=== PATIENT | female | born 1980 | race Caucasian/White ===

== ENCOUNTER → 2020-09-10 02:26 | Outpatient (CLI) | payer OTHER, SELFPAY ==
[2020-09-10 18:14] LABS: SARS-CoV-2 RNA PCR Negative
== END ==
PROVIDERS: Visit Provider Surgery Plastic and Reconstructive Surgery
DX: Z01.812 Encounter for preprocedural laboratory examination (principal); Z20.822 Contact with and (suspected) exposure to COVID-19
CPT/HCPCS: C9803; U0003; U0005

== ENCOUNTER 2020-09-12 00:38 | Day surgery (SDC) | payer OTHER, SELFPAY ==
[2020-08-30 12:15] VITALS: BMI 33.3
[2020-09-12] VITALS (9 sets, daily range): BP systolic 114–136; BP diastolic 63–77; PULSE 60–81; RESP 13–20; TEMP 35.9–36.9; O2SAT 94–99
[2020-09-12] MEDS: LACTATED RINGERS 1,000 ML 30 ML IV CONT (06:34)
--- NOTE | 2020-09-12 06:56 | WPDHPUPDATE1 ---
History and Physical Update Update Date/Time: 09/12/20 06:56 History and Physical has been reviewed, including an updated exam of the patient. There are NO changes in the patient's condition. Risks, benefits, and alternatives have been discussed and questions answered. Patient agrees to proceed with procedure.
--- NOTE | 2020-09-12 07:18 | P.OP_ITS ---
Procedure Note - Detailed Date of procedure: 09/12/20 Pre-op diagnosis: breast ptosis Post-op diagnosis: same Procedure performed: Bilateral mastopexy with lateral breast/chest wall suction lipectomy and Galaflex Description of procedure: Preoperatively the risks, benefits, alternatives were again discussed with her. Discussed realistic expectations of outcome. I identified asymmetries that were existing and limitations of the procedure. All questions answered. Consent obtained. He was marked in the preoperative holding area with her verification. She was taken to the operating room placed supine on the operating room table. Ane sthesia was provided by anesthesiology and prepped and draped in a standard sterile fashion. Surgical time-out was taken. Stab incisions were made and used a tumescent solution. The breast was tailor tacked into position. Placed in a sitting position. I marked out the nipple-areolar complex at 30 mm based on preoperative markings and intraoperative observations and measurements which were in full agreement. I de-epithelialized bilateral superior pedicles. Subsequently de-epithelialized the inferior pole of the breast. I created bilateral auto augmentation flaps. On the left portion of this soft tissue had to be resected in order provide symmetry between the breasts. These were tacked to the chest wall using 2-0 PDS. I then tailor tacked the breast into position again. Placed her in a sitting position and verified my markings for suction lipectomy. Using a 4 mm basket cannula based on S.A.F.E. technique I completed suction lipectomy bilateral lateral breast and chest wall as necessary in order to provide maximum symmetry and contour. This was based on observations and rolling pinch test. I then proceeded with closure using 2-0 PDS along the IMF and vertical pillars. This followed by 3-0 Monocryl in the vertical and around the areola. 3-0 strata fix along the IMF. Finally running subcuticular 4-0 Monocryl for final closure followed by tissue glue. Surgical bra was placed. Patient was woken taken to the PACU without difficulty. All instrument sponge counts were correct at the end of the case. Anesthesia: GLMA Surgeon: Luis Silverio MD Estimated blood loss (mL): 50 Drains: No Packing: No Pathology: none sent Complications: No immediate complications Condition: stable Disposition: PACU Findings: Inverted T Superior pedicle Suction lipectomy volume - 600cc Galaflex - REF# [id number]
[2020-09-12] MEDS: SCOPOLAMINE 1.5 MG PATCH TRANSDERM (07:20)
--- NOTE | 2020-09-12 07:20 | WPDANESEPPF ---
Anes - Initial Pre Proc Eval Procedure: Operation Date: 09/12/20 07:30 Proposed Procedures p Bilateral Breast Mastopexy with Galaflex, Lateral Breast Liposuction - Luis Silverio MD Date/Time: 09/12/20 07:20 Surgeon: Luis Silverio MD Pre Op Diagnosis: breast ptosis Patient Data Age: 40 Gender: F Height: 5 ft 4 in Weight: 88 kg Allergies Allergy/AdvReac Type Severity Reaction Status Date / Time No Known Allergies Allergy Verified 08/30/20 12:13 Home Medications Medication Instructions Recorded Confirmed Type docusate sodium 100 mg capsule 100 mg PO DAILY #14 cap 08/28/20 08/30/20 Rx ondansetron HCl 4 mg tablet 4 mg PO Q8H #28 tablet 08/28/20 08/30/20 Rx drospirenone-ethinyl estradiol 1 tablet PO DAILY 08/30/20 08/30/20 History [Angelica] multivitamin 1 tablet PO DAILY 08/30/20 08/30/20 History carisoprodol 350 mg tablet 350 mg PO TID PRN #21 tablet 09/02/20 09/02/20 Rx oxycodone-acetaminophen 5 mg-325 1 tablet PO Q6H PRN #15 tablet 09/02/20 09/02/20 Rx mg tablet Laboratory Tests 09/12/20 06:29 Cotinine Pending Patient hx anesthesia problems: post op nausea/vomiting Family hx anesthesia problems: none PMFSH Past Medical History Medical History (Updated 09/12/20 @ 07:20 by Placido Lay MD) Healthy adult Surgical History Surgical History History of hip surgery Social History Social History Smoking status: Never smoker Alcohol intake: current Drinks per week: 2 Substance use: never Substance use type: does not use Living arrangements: with family Spiritual care concerns: No Anes - Eval Final PreProcedure Day of Procedure 09/12/20 07:20 Patient weight: normal Heart: regular rate and rhythm Lungs: clear to auscultation Airway: Mallampati scale class II Neurological: alert and oriented Last oral intake: >/= 8 hours ASA classification: I Emergent: no Anesthetic plan: proceed Anesthesia type and monitoring: general ETT and standard monitoring Informed Consent: The patient's anesthetic plan and its attendant risks and benefits were discussed with the patient/family/POA. Questions were solicited and answers provided to the satisfaction of the patient/family/POA.
[2020-09-12] MEDS: LACTATED RINGERS IRRIG 1,000 ML, LIDOCAINE HCL 1% LOCAL INJ 50 ML, EPINEPHrine HCL INJ ... INFILTRATE (07:29)
[2020-09-12] MEDS: ceFAZolin 2 GM/D5W 50 ML 2 GM/50 ML BAG IVPB (07:29)
--- NOTE | 2020-09-12 08:23 | SUR.OPER ---
TXA given by anesthesia @0839
--- NOTE | 2020-09-12 10:25 | SUR.OPER ---
EBL:50cc
--- NOTE | 2020-09-12 11:06 | SUR.PHASEI ---
O2 removed at 1105.
[2020-09-12] MEDS: ONDANSETRON INJ 4 MG/2 ML VIAL IV PUSH (11:45)
[2020-09-12] MEDS: oxyCODONE HCL (*CRX) 5 MG TAB IR PO (12:21)
[2020-09-12 18:23] LABS: Urine Cotinine NEGATIVE
== END 2020-09-12 13:07 | disposition home or self-care (01) ==
PROVIDERS: Visit Provider Surgery Plastic and Reconstructive Surgery
PROC: (CPT 19316; principal; 2020-09-12 07:30)
DX: Z41.1 Encounter for cosmetic surgery (principal); N64.81 Ptosis of breast; Z79.899 Other long term (current) drug therapy
CPT/HCPCS: 19316; 15777 ×2; 15877; 80307; A9270; J0131; J0171; J0690; J1100; J1170; J1580; J2250; J2405; J2704; J2710; J3010; J7120

== ENCOUNTER 2021-07-15 00:14 | Day surgery (SDC) | payer OTHER, SELFPAY ==
[2021-07-03 14:18] VITALS: BMI 32.5
[2021-07-15 06:53] VITALS: BP 113/81; PULSE 90; RESP 17; TEMP 36.6; O2SAT 97
[2021-07-15] MEDS: LACTATED RINGERS 1,000 ML 150 ML IV CONT (07:04)
--- NOTE | 2021-07-15 07:37 | P.PNAN_ITS ---
Anes - Initial Pre Proc Eval Procedure: Operation Date: 07/15/21 08:00 Proposed Procedures p Screening Colonoscopy - Yonatan Hartley MD Date/Time: 07/15/21 07:37 Surgeon: Yonatan Hartley MD Pre Op Diagnosis: neoplam screening, family hx of colon ca Patient Data Age: 41 Gender: F Height: 1.63 m Weight: 86 kg Last Vital Signs Temp 97.8 F 07/15/21 06:53 Pulse 90 07/15/21 06:53 Resp 17 07/15/21 06:53 BP 113/81 07/15/21 06:53 Pulse Ox 97 07/15/21 06:53 Allergies Allergy/AdvReac Type Severity Reaction Status Date / Time No Known Allergies Allergy Verified 07/03/21 14:14 Home Medications Medication Instructions Recorded Confirmed Type drospirenone-ethinyl estradiol 1 tablet PO DAILY 08/30/20 07/15/21 History [Angelica] multivitamin 1 tablet PO DAILY 08/30/20 07/15/21 History Patient hx anesthesia problems: post op nausea/vomiting Family hx anesthesia problems: none Results Review: All pre-operative results and documents have been reviewed as part of the pre-operative evaluation. [facility] Past Medical History Medical History (Updated 10/21/20 @ 15:01 by Laura Childers CMA) Healthy adult Surgical History Surgical History History of hip surgery Social History Social History Smoking status: Never smoker Alcohol intake: current Drinks per week: 1 Alcohol use details: socially Substance use: never Substance use type: does not use Living arrangements: with family Spiritual care concerns: No Anes - Eval Final PreProcedure Day of Procedure 07/15/21 07:37 Patient weight: obese Heart: regular rate and rhythm Lungs: clear to auscultation Airway: Mallampati scale class II Neurological: alert and oriented Last oral intake: >/= 8 hours ASA classification: II Emergent: no Anesthetic plan: proceed Anesthesia type and monitoring: general GIVS and standard monitoring Results Review: All pre-operative results and documents have been reviewed as part of the pre-operative evaluation. Informed Consent: The patient's anesthetic plan and its attendant risks and benefits were discussed with the patient/family/POA. Questions were solicited an d answers provided to the satisfaction of the patient/family/POA.
--- NOTE | 2021-07-15 07:42 | PM.HPGS ---
History of Present Illness History of Present Illness Consent: Risks, benefits, and alternatives have been discussed and questions answered. Patient agrees to proceed with procedure. Chief complaint: neoplam screening, family hx of colon ca Narrative: Vivi Membreno is a 41 year old female here for first colonoscopy, mother had colon cancer Review of Systems Constitutional: Constitutional: Denies headache(s) and Denies weakness Eyes: Eyes: Denies blurry vision ENT: Reports Normal hearing present, Denies headache(s) and Denies neck pain Cardiovascular: Cardiovascular: Denies chest pain and Denies dyspnea Respiratory: Respiratory: Denies dyspnea Gastrointestinal: Gastrointestinal: Reports no additional gastrointestinal complaints Genitourinary: Genitourinary: Denies dysuria Musculoskeletal: Musculoskeletal: Denies neck pain Integumentary/Breasts: Skin/Breast: Denies dry skin Neurologic: Reports Normal hearing present, Denies headache(s) and Denies weakness Psychiatric: Psychiatric: Denies anxiety Endocrine: Endocrine: Denies change in body appearance Hematologic/Lymphatic: Hematologic/Lymphatic: Denies easy bleeding Allergic/Immunologic: Allergic/Immunologic: Denies urticaria [facility] Past Medical History Medical History (Updated 07/15/21 @ 07:43 by Yonatan Hartley MD) Family history of colon cancer in mother Healthy adult Surgical History Surgical History History of hip surgery Social History Social History Smoking status: Never smoker Alcohol intake: current Drinks per week: 1 Alcohol use details: socially Substance use: never Substance use type: does not use Living arrangements: with family Spiritual care concerns: No Meds Home Medications and Allergies Home Medications Medication Instructions Recorded Confirmed Type drospirenone-ethinyl estradiol 1 tablet PO DAILY 08/30/20 07/15/21 History [Angelica] multivitamin 1 tablet PO DAILY 08/30/20 07/15/21 History Allergies Allergy/AdvReac Type Severity Reaction Status Date / Time No Known Allergies Allergy Verified 07/03/21 14:14 Vital Signs Vital Signs - 24 hr 07/15/21 06:53 Temperature 97.8 F Pulse Rate 90 Respiratory Rate 17 Blood Pressure 113/81 Pulse Oximetry 97 Exam Const: General: comfortable and no acute distress HENMT: General nose exam: Normal nares present Eyes: General: appearance normal, both eyes and all related structures Neck: Neck: no JVD Resp: Auscultation: clear to auscultation bilaterally Cardio: Rate: regular rate Rhythm: regular rhythm GI: Inspection: non-distended GI Palp: Yes Soft to palpation Skin: General skin exam: normal color Neuro: General: gait normal Speech: normal speech Extrem: General: normal to inspection Psych: Mental Status: mental status grossly normal Assessment and Plan Assessment and plan (1) Family history of colon cancer in mother: Code(s): Z80.0 - Family history of malignant neoplasm of digestive organs Status: Acute Assessment and Plan: colonoscopy
[2021-07-15 08:02] VITALS: BP 107/72; PULSE 85; RESP 22; O2SAT 100
[2021-07-15 08:12] VITALS: BP 118/82; PULSE 65; RESP 17; O2SAT 100
[2021-07-15 08:23] VITALS: BP 125/83; PULSE 63; RESP 17; O2SAT 100
== END 2021-07-15 08:34 | disposition home or self-care (01) ==
PROVIDERS: PCP Nurse Practitioner Family; Visit Provider Internal Medicine Gastroenterology
PROC: 0DJD8ZZ Inspection of Lower Intestinal Tract, Via Natural or Artificial Opening Endoscopic (ICD-10-PCS; CPT 45378; principal; 2021-07-15 08:00)
DX: Z12.11 Encounter for screening for malignant neoplasm of colon (principal); D12.3 Benign neoplasm of transverse colon; Z80.0 Family history of malignant neoplasm of digestive organs; K64.8 Other hemorrhoids; E66.9 Obesity, unspecified; Z68.32 Body mass index [BMI] 32.0-32.9, adult
CPT/HCPCS: 45380; 88305; J2704; J7120